=== PATIENT | male | born 1970 | race Caucasian/White ===

== ENCOUNTER 2023-12-28 14:34 | Emergency (ER) | payer BC, OTHER ==
[2023-12-28 14:49] VITALS: BP 120/71; PULSE 83; RESP 18; TEMP 98.6; BMI 35.2
[2023-12-28] MEDS: SODIUM CHLORIDE 0.9% 500 ML INFUS.BAG IV ONE (15:10)
[2023-12-28 15:21] LABS: HEMATOCRIT 42.4 % (35.4-49); HEMOGLOBIN 14.1 G/dL (11.7-16.9); MCH 29.9 pg (25.7-33.7); MCHC 33.3 g/dl (32.0-35.9); MEAN CELL VOLUME 89.6 fl (80-96); PLATELET COUNT 93.1 10^3/uL (134-434); RBC 4.73 10^6/uL (4.00-5.60); RDW 13.2 % (11.9-15.9); WHITE BLOOD COUNT 5.5 10^3/uL (4.0-10.8)
[2023-12-28 15:30] LABS: ALBUMIN 3.7 g/dl (3.4-5.0); BILIRUBIN,TOTAL 0.8 mg/dl (0.2-1); CALCIUM 8.5 mg/dl (8.5-10.1); TOT PROT 6.2 g/dl (6.4-8.2)
[2023-12-28 15:45] LABS: PLATELET ESTIMATE DECREASED
== END 2023-12-28 16:15 | disposition home or self-care (01) ==
LOC: FER 14:34
DX: R31.0 Gross hematuria (principal); T78.40XA Allergy, unspecified, initial encounter
CPT/HCPCS: 36415; 80053; 81003; 81015; 82550; 85027; 99284-25